=== PATIENT | male | born 1995 | race Caucasian/White ===

== ENCOUNTER 2025-06-06 08:23 | Emergency (ER) | payer MEDICAID ==
[~2025-06-06] VITALS: Ht 172.7 cm; Wt 91.0 kg
[2025-06-06 08:27] VITALS: O2SAT 96
[2025-06-06 09:52] VITALS: BP 146/77; PULSE 76; RESP 15; TEMP 36.5; O2SAT 96
== END 2025-06-06 09:53 | disposition home or self-care (01) ==
LOC: ER 08:23
DX: R05.9 Cough, unspecified (principal); F20.9 Schizophrenia, unspecified
CPT/HCPCS: 71045; 99283

== ENCOUNTER 2025-06-16 20:34 | Emergency (ER) | payer MEDICAID ==
[~2025-06-16] VITALS: Ht 172.7 cm; Wt 98.0 kg
[2025-06-16 20:41] VITALS: TEMP 36.9; O2SAT 99
[2025-06-16] MEDS: CEFTRIAXONE SODIUM 500MG VIAL IM ONE (22:35)
[2025-06-16 22:36] VITALS: BP 132/82; PULSE 77; RESP 18; O2SAT 98
[2025-06-16 23:17] LABS: CLARITY URINE CLEAR (CLEAR); COLOR URINE YELLOW (YELLOW); GLUCOSE URINE NEGATIVE (NEGATIVE); KETONES URINE NEGATIVE (NEGATIVE); LEUKOCYTE ESTERASE URINE NEGATIVE (NEGATIVE); NITRITE URINE NEGATIVE (NEGATIVE); OCCULT BLOOD URINE NEGATIVE (NEGATIVE); PH URINE 6.0 (4.5-8.0); PROTEIN URINE NEGATIVE (NEGATIVE); SPECIFIC GRAVITY URINE 1.012 (1.005-1.030); UROBILINOGEN URINE 0.2 E.U./dL (0.2-1.0)
[2025-06-16] MEDS ORDERED: DOXY100T2 MT (23:18)
== END 2025-06-16 23:59 | disposition home or self-care (01) ==
LOC: ER 20:34
DX: Z11.3 Encounter for screening for infections with a predominantly sexual mode of transmission (principal); F20.9 Schizophrenia, unspecified
CPT/HCPCS: 99283; 81003; 96372; J0696

== ENCOUNTER 2025-06-28 19:01 | Emergency (ER) | payer MEDICAID ==
[~2025-06-28] VITALS: Ht 172.7 cm; Wt 114.0 kg
[~2025-06-28 19:01] MED LIST: DOXY100T2 MT
[2025-06-28 19:12] VITALS: TEMP 36.8; O2SAT 95
[2025-06-28 20:51] LABS: CLARITY URINE CLEAR (CLEAR); COLOR URINE YELLOW (YELLOW); GLUCOSE URINE NEGATIVE (NEGATIVE); KETONES URINE NEGATIVE (NEGATIVE); LEUKOCYTE ESTERASE URINE NEGATIVE (NEGATIVE); NITRITE URINE NEGATIVE (NEGATIVE); OCCULT BLOOD URINE NEGATIVE (NEGATIVE); PH URINE 6.0 (4.5-8.0); PROTEIN URINE NEGATIVE (NEGATIVE); SPECIFIC GRAVITY URINE 1.004 (1.005-1.030); UROBILINOGEN URINE 0.2 E.U./dL (0.2-1.0)
[2025-06-29] MEDS ORDERED: CEPH500T MT (00:06)
[2025-06-29 00:15] VITALS: BP 136/85; PULSE 70; RESP 15; O2SAT 96
== END 2025-06-29 00:18 | disposition home or self-care (01) ==
LOC: ER 19:01
DX: N48.22 Cellulitis of corpus cavernosum and penis (principal); F20.9 Schizophrenia, unspecified; Z79.899 Other long term (current) drug therapy
CPT/HCPCS: 81003; 87591; 99283